=== PATIENT | male | born 1990 | race Hispanic/Latino ===

== ENCOUNTER 2024-04-01 14:57 | Emergency (ER) | payer OTHER ==
[2024-04-01] MEDS ORDERED: METHYLPREDNISOLONE 125 MG INJ ONE (15:15)
[2024-04-01] MEDS ORDERED: LEVALBUTEROL 1.25 MG/3 ML NEB ONE ×3 (15:15→17:58)
[2024-04-01] MEDS ORDERED: IPRATROPIUM BROM 0.5MG/2.5ML ONE (15:15)
--- NOTE | 2024-04-01 21:04 | EDPHYS ---
Physician Documentation [facility] Name: Tomas Randall Age: 33 yrs Sex: Male : 1990 Arrival Date: 04/01/2024 Time: 14:57 Bed 4 Private MD: ED Physician Eriberto Johnson HPI: 04/01 15:09 This 33 yrs old Male presents to ER via Unassigned with complaints of Asthma rn Exacerbation, Breathing Difficulty. 15:09 The patient presents to the emergency department with wheezing, that began while rn working, the patient was reported to have audible wheezing. Onset: The symptoms/episode began/occurred yesterday. Modifying factors: The symptoms are alleviated by nothing, the symptoms are aggravated by dust. Severity of symptoms: At their worst the symptoms were moderate in the emergency department the symptoms are unchanged. The patient has experienced similar episodes in the past. Patient reports history of asthma, works outside as a linux administrator,. Reports audible wheezing and shortness of breath. Denies fever or illness. No chest pain. Has not been able to use his nebulizer treatments for the last couple of days due to loss of power. Historical: - Allergies: 15:15 No Known Allergies; ap3 - PMHx: 15:15 Asthma; ap3 - Immunization history:: Client reports having NOT received the Covid vaccine. - Infectious Disease History:: Denies. - Family history:: not pertinent. - Hospitalizations: : No recent hospitalization is reported. - Social history:: Smoking status: Patient denies any tobacco usage or history of. ROS: 15:09 Constitutional: Negative for fever, chills, and weight loss, Cardiovascular: Negative rn for chest pain, palpitations, and edema, Respiratory: Positive for shortness of breath and wheezing Exam: 15:09 Constitutional: This is a well developed, well nourished patient who is awake, alert, corn lab technician to room. Respiratory: Mild tachypnea with wheezing bilaterally. Vital Signs: 15:07 BP 137 / 89; Pulse 103; Resp 17; Pulse Ox 93% on R/A; Weight 108.86 kg; Height 6 ft. 0 ap3 in. ; 18:20 BP 137 / 99; Pulse 109; Resp 20; Pulse Ox 98% on R/A; ko1 15:07 Body Mass Index 32.55 (108.86 kg, 182.88 cm) ap3 MDM: 15:03 Patient medically screened. rn 18:02 Differential diagnosis: acute asthma. Data reviewed: vital signs, nurses notes, and as rn a result, I will discharge patient. Care significantly affected by the following chronic conditions: asthma. Counseling: I had a detailed discussion with the patient and/or guardian regarding the historical points, exam findings, and any diagnostic results supporting the discharge/admit diagnosis, the need for outpatient follow up, to return to the emergency department if symptoms worsen or persist or if there are any questions or concerns that arise at home. Response to treatment: the patient's symptoms have markedly improved after treatment, and as a result, I will discharge patient. Administered Medications: 15:28 Drug: MethylPREDNISolone Sodium Succinate IM 125 mg IM once Route: IM; Site: right ph vastus lateralis; 15:28 Drug: Levalbuterol Inhalation 1.25 mg Inhalation once Route: Inhalation; ph 15:28 Drug: Ipratropium Inhalation Aerosol 0.5 mg Inhalation once Route: Inhalation; ph 16:10 Drug: Levalbuterol Inhalation 1.25 mg Inhalation once Route: Inhalation; ph 18:00 Drug: Levalbuterol Inhalation 1.25 mg Inhalation once Route: Inhalation; ph Disposition Summary: 04/01/24 18:03 Discharge Ordered Notes: Location: Home rn Problem: new rn Symptoms: have improved rn Condition: Stable rn Diagnosis - Unspecified asthma with (acute) exacerbation rn Followup: rn - With: Private Physician - When: As needed - Reason: Recheck today's complaints, Re-evaluation by your physician Discharge Instructions: - Discharge Summary Sheet rn - Asthma, Adult rn Forms: - Medication Reconciliation Form rn - Antibiotic science intern - Prescription Opioid Use rn - Patient Portal Instructions rn - Leadership Thank You Letter rn Signatures: Eriberto Johnson MD MD rn Teresa Osorio RN RN Elda Borja RN RN ap3
--- NOTE | 2024-04-01 21:04 | ER ---
Nurse's Notes [facility] Name: Tomas Randall Age: 33 yrs Sex: Male : 1990 Arrival Date: 04/01/2024 Time: 14:57 Bed 4 Private MD: Diagnosis: Unspecified asthma with (acute) exacerbation Presentation: 04/01 15:07 Chief complaint: Patient states: he was working outside when he got short of breath. ap3 patient states he has asthma and has not been able to take his breathing treatments due to lack of electricity. Coronavirus screen: At this time, the client does not indicate any symptoms associated with coronavirus-19. Ebola Screen: No symptoms or risks identified at this time. Initial Sepsis Screen: Does the patient meet any 2 criteria? No. Patient's initial sepsis screen is negative. Does the patient have a suspected source of infection? No. Patient's initial sepsis screen is negative. Risk Assessment: Do you want to hurt yourself or someone else? Patient reports no desire to harm self or others. Onset of symptoms was April 01, 2024. 15:07 Method Of Arrival: Ambulatory ap3 15:07 Acuity: REBECA 3 ap3 Triage Assessment: 15:14 General: Appears distressed, Behavior is calm, cooperative, appropriate for age. Pain: ap3 Denies pain. Neuro: Level of Consciousness is awake, alert, obeys commands, Oriented to person, place, time, situation. Cardiovascular: Patient's skin is warm and dry. Respiratory: Reports shortness of breath labored breathing Airway is patent Respiratory effort is labored, Respiratory pattern is regular, symmetrical, Onset: The symptoms/episode began/occurred suddenly, the patient has moderate shortness of breath. Historical: - Allergies: 15:15 No Known Allergies; ap3 - PMHx: 15:15 Asthma; ap3 - Immunization history:: Client reports having NOT received the Covid vaccine. - Infectious Disease History:: Denies. - Family history:: not pertinent. - Hospitalizations: : No recent hospitalization is reported. - Social history:: Smoking status: Patient denies any tobacco usage or history of. Screenin:15 Abuse screen: Denies threats or abuse. Nutritional screening: No deficits noted. ap3 Tuberculosis screening: No symptoms or risk factors identified. 15:32 [facility] ED Fall Risk Assessment (Adult) History of falling in the last 3 months, ph including since admission No falls in past 3 months (0 pts) Confusion or Disorientation No (0 pts) Intoxicated or Sedated No (0 pts) Impaired Gait No (0 pts) Mobility Assist Device Used No (0 pt) Altered Elimination No (0 pt) Score/Fall Risk Level 0 - 2 = Low Risk Oriented to surroundings, Maintained a safe environment, Hourly rounding (assess needs \T\ fall precautionary measures) done. Assessment: 15:33 General: Appears uncomfortable, well groomed, Behavior is calm, cooperative. Pain: ph Denies pain. Neuro: Level of Consciousness is awake, alert, obeys commands, Oriented to person, place, time, situation. Cardiovascular: Reports shortness of breath. Respiratory: Airway is patent Respiratory effort is labored, Respiratory pattern is regular, Breath sounds with wheezes. Derm: Skin is pink, warm \T\ dry. 18:22 Cardiovascular: Rhythm is regular. ko1 Vital Signs: 15:07 BP 137 / 89; Pulse 103; Resp 17; Pulse Ox 93% on R/A; Weight 108.86 kg; Height 6 ft. 0 ap3 in. ; 18:20 BP 137 / 99; Pulse 109; Resp 20; Pulse Ox 98% on R/A; ko1 15:07 Body Mass Index 32.55 (108.86 kg, 182.88 cm) ap3 ED Course: 14:58 Patient arrived in ED. im 15:03 Eriberto Johnson MD is Attending Physician. rn 15:14 Triage completed. ap3 15:15 Arm band placed on right wrist. ap3 15:15 Patient has correct armband on for positive identification. Bed in low position. Call ap3 light in reach. Side rails up X 1. 15:31 Teresa Osorio, RN is Primary Nurse. ph 18:20 Provided Education on: meds. ko1 18:20 No provider procedures requiring assistance completed. Patient did not have IV access ko1 during this emergency room visit. Administered Medications: 15:28 Drug: MethylPREDNISolone Sodium Succinate IM 125 mg IM once Route: IM; Site: right ph vastus lateralis; 15:28 Drug: Levalbuterol Inhalation 1.25 mg Inhalation once Route: Inhalation; ph 15:28 Drug: Ipratropium Inhalation Aerosol 0.5 mg Inhalation once Route: Inhalation; ph 16:10 Drug: Levalbuterol Inhalation 1.25 mg Inhalation once Route: Inhalation; ph 18:00 Drug: Levalbuterol Inhalation 1.25 mg Inhalation once Route: Inhalation; ph Medication: 15:33 VIS not applicable for this client. ph Outcome: 18:03 Discharge ordered by . rn 18:20 Discharged to home ambulatory, ko1 18:20 Condition: improved 18:20 Discharge instructions given to patient, Instructed on discharge instructions, follow up and referral plans. medication usage, Demonstrated understanding of instructions, follow-up care, medications, Prescriptions given X 1, 18:22 Patient left the ED. ko1 Signatures: Eriberto Johnson MD MD rn Hall, Patricia, RN RN Elda Borja RN RN Nina Vegas RN RN ko1 Carmen Betts
[2024-04-01 22:15] VITALS: BP 137/99; O2SAT 98
== END 2024-04-01 18:22 | disposition home or self-care (01) ==
LOC: ER 14:57
DX: J45.901 Unspecified asthma with (acute) exacerbation (principal); R06.02 Shortness of breath
CPT/HCPCS: 96372; 99284; J2919; J7614; J7644